=== PATIENT | female | born 1980 ===

== ENCOUNTER 2020-05-29 10:53 | Emergency (ER) | payer SELFPAY ==
[2020-05-29 12:08] VITALS: BP 134/74
[2020-05-29] MEDS ORDERED: IBUPROFEN 600 MG TAB PO ONE (12:49)
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
== END 2020-05-29 14:21 | disposition home or self-care (01) ==
LOC: ED 10:53
DX: S29.011A Strain of muscle and tendon of front wall of thorax, initial encounter (principal); S16.1XXA Strain of muscle, fascia and tendon at neck level, initial encounter; V89.2XXA Person injured in unspecified motor-vehicle accident, traffic, initial encounter; Y93.89 Activity, other specified; Y92.410 Unspecified street and highway as the place of occurrence of the external cause; Y99.8 Other external cause status
CPT/HCPCS: 71046; 72040